=== PATIENT | female | born 1945 | race Caucasian/White ===

== ENCOUNTER 2017-08-27 13:33 | Observation (INO) | payer OTHER ==
[~2017-08-27] VITALS: Ht 165.1 cm; Wt 74.8 kg
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
--- NOTE | 2017-08-27 15:57 | CT SCAN REPORT ---
EXAMINATION: CT HEAD WITHOUT CONTRAST CLINICAL INFORMATION: Fall. Rule out bleed. COMPARISON: None. TECHNIQUE: Contiguous axial imaging was performed from the skull base to vertex without intravenous contrast. DLP: 615 mGy-cm. FINDINGS: There is a small volume of subarachnoid hemorrhage along the right frontal lobe, series 2 image 35. There is no evidence of acute parenchymal hemorrhage or territorial infarction. No abnormal mass effect or midline shift is seen. Yun to white matter differentiation is well preserved. No hydrocephalus. Proportional prominence of the ventricles and sulcal spaces is consistent with mild volume loss. Patchy periventricular and deep white matter hypoattenuation is consistent with mild small vessel ischemic changes. Right basal ganglia chronic lacunar infarcts. Laceration overlying the right supraorbital region. No associated calvarial fracture. The mastoid air cells and visualized portions of the paranasal sinuses are well aerated. IMPRESSION: Small volume of right frontal subarachnoid hemorrhage. No parenchymal hemorrhage or other acute abnormality. This critical result was discussed with Pasha Doherty MD by telephone at 08/27/2017 3:51 PM and it was ascertained that the content and urgency of the report was understood at the time of direct communication.
[2017-08-27 17:35] LABS: ABSOLUTE BASOPHIL COUNT 0 /CUMM (0.0-0.2); ABSOLUTE EOSINOPHIL COUNT 0.1 /CUMM (0.0-0.7); ABSOLUTE GRANULOCYTE CT 5.3 /CUMM (1.4-6.5); ABSOLUTE MONOCYTE COUNT 0.6 /CUMM (0.10-0.60); BASOPHIL % 0.5 % (0.0-2.0); EOSINOPHIL % 1.2 % (0-5); HEMATOCRIT 40.6 % (37-47); MEAN CORPUSCULAR HGB 30.8 PG (27.0-31.0); MEAN CORPUSCULAR HGB CONC 33.5 G/DL (33.0-37.0); MEAN PLATELET VOLUME 7.4 FL (7.4-10.4); PLATELET COUNT 303 /CUMM (130-400); RBC DISTRIBUTION WIDTH 13.7 % (11.5-14.5); RED BLOOD CELL CT 4.42 /CUMM (4.20-5.40); WHITE BLOOD CELL COUNT 8.1 /CUMM (4.8-10.8)
[2017-08-27 17:44] LABS: PT 10.8 SEC (9.4-12.5); PTT 28 SEC (25-37)
[2017-08-27] MEDS ORDERED: VITAMIN D1000 UNIT PO (19:10)
[2017-08-27] MEDS ORDERED: ESCITALOPRAM OXA5 MG PO (19:12)
[2017-08-27] MEDS ORDERED: DILTIAZEM HCL90 MG PO (19:12)
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
--- NOTE | 2017-08-27 22:59 | Admission Certification ---
Admission Certification Certification Statement - As attending physician, I certify that at the time of - admission, based on clinical presentation, severity of - symptoms, need for further diagnostic testing and - therapeutic interventions, and risk of adverse outcomes - without in-hospital treatment, in my clinical assessment, - this patient requires an acute hospital stay for a minimum - of two nights or longer. I have also considered psychsocial - factors such as support system, advanced age, financial - issues, cognitive issues, and failed out-patient treatments, - past re-admission history, safety of patient, and lack of - compliance as applicable. Specific rationale supporting this admission is: Mechanical fall, forehead laceration with small subarachnoid hemorrhage
[2017-08-27 23:10] VITALS: BP 130/64
[2017-08-28 07:20] VITALS: BP 120/74
--- NOTE | 2017-08-28 07:30 | PN- Housestaff ---
Stephanie MURPHY,Deonte 08/28/17 0729: Subjective Follow-up For: SAH Subjective: Patient was seen and examined at bedside. She was resting comfortably. She had no acute events overnight. She is very eager for discharge. She is complaining of a mild headache but believes this is due to being NPO since last night. She denies any weakness, tingling, numbness of visual changes. Review of Systems Constitutional: Denies: chills, fever. EENTM: Denies: blurred vision, double vision, visual changes. Cardiovascular: Denies: chest pain, palpitations. Respiratory: Denies: cough, short of breath. Gastrointestinal: Denies: abdominal pain, constipation, diarrhea, melena, nausea, bloody stool, vomiting. Genitourinary: Reports: no symptoms. Objective Last 24 Hrs of Vital Signs/I&O Vital Signs Date Time Temp Pulse Resp B/P B/P Pulse O2 O2 Flow FiO2 Mean Ox Delivery Rate 08/28 0720 97.8 72 20 120/74 93 Room Air 08/27 2310 98.0 61 20 130/64 93 Room Air 08/27 2025 97.3 66 18 132/57 95 08/27 1748 61 16 151/60 96 Room Air 08/27 1414 98.2 67 18 165/95 98 Room Air Intake & Output 08/28 0800 08/28 0000 08/27 1600 Intake Total 220 Output Total Balance 220 Intake, Oral 220 Patient 165 lb 130 lb Weight Weight Reported by Patient Reported by Patient Measurement Method Physical Exam General Appearance: Alert, Oriented X3, Cooperative, No Acute Distress Skin: abrasions on the knees and dorsal hands bilaterally. HEENT: large laceration on the R sided forehead s/p suture placement Cardiovascular: Regular Rate, Normal S1, Normal S2, No Murmurs Lungs: Clear to Auscultation, Normal Air Movement Abdomen: Normal Bowel Sounds, Soft, No Tenderness Neurological: Normal Gait, Normal Speech, Strength at 5/5 X4 Ext, Normal Tone, Sensation Intact, Cranial Nerves 3-12 NL Extremities: No Clubbing, No Cyanosis, No Edema Current Medications: Current Medications Sig/Delbert Start time Last Medication Dose Route Stop Time Status Admin Acetaminophen 650 MG Q8P PRN 08/27 2315 AC PO Acetaminophen 1,000 MG BID PRN 08/27 2315 AC IV Cholecalciferol 1,000 IU DAILY 08/28 1000 AC PO Lidocaine 0 .STK-MED ONE 08/27 1540 DC .ROUTE Tetanus/Diphtheria 0 .STK-MED ONE 08/27 1540 DC Toxoids Adsorbed IM Tetanus/Diphtheria 0 .STK-MED ONE 08/27 1538 DC Toxoids Adsorbed IM Tetanus/Diphtheria 0.5 ML ONCE ONE 08/27 1530 DC 08/27 Toxoids Adsorbed IM 08/27 1531 1540 Last 24 Hrs of Lab/Dickson Results Last 24 Hrs of Labs/Mics: Laboratory Tests 08/28/17 0800: Anion Gap 8, Estimated GFR > 60, BUN/Creatinine Ratio 20.0, Troponin I < 0.01, CBC w Diff NO MAN DIFF REQ, RBC 4.41, MCV 90.9, MCH 31.0, RDW 13.8, MPV 7.7, Gran % 59.8, Lymphocytes % 29.1, Monocytes % 9.0, Eosinophils % 1.5, Basophils % 0.6, Absolute Granulocytes 4.6, Absolute Lymphocytes 2.2, Absolute Monocytes 0.7 H, Absolute Eosinophils 0.1, Absolute Basophils 0, PUBS MCHC 34.1 Orders Radiology Findings: head CT The small area of subarachnoid hemorrhage overlying the right middle frontal gyrus is unchanged compared to 08/27/2017. No new intracranial findings compared to the prior exam. Assessment/Plan Assessment: Patient is a 72 year old female witha PMH significant for ostoepenia and SVT who presented to the ED status post mechanical fall with head strike but no LOC. #SAH repeat head CT showed no change in the size of her SAH. She was seen and evaluated by NSG who determined that she is not a surgical candidate and stable for discharge without change in her CT. -Patient is stable for discharge - she will follow up with NSG as an outpatient. - She was given wound care instructions and detailed instructions on symptoms to be aware of that could represent worsening SAH and told to call 911 immediately. #DVT prophylaxis ALPS #code status full code Problem List: 1. Subarachnoid hemorrhage 2. Laceration Pain Ratin Pain Location: head Pain Goal: Pain 4 or less Pain Plan: pain pathway Tomorrow's Labs & Rationales: none Shoaib Franklin MD 08/28/17 1155: Attending MD Review Statement Attending Statement Attending MD Statement: examined this patient, discuss w/resident/PA/BEVEL GEAR GENERATOR OPERATOR, agreed w/resident/PA/BEVEL GEAR GENERATOR OPERATOR, discussed with family, reviewed EMR data (avail), discussed with nursing, discussed with case mgmt, amended to note Attending Assessment/Plan: Patient seen and examined. Lying comfortably in bed not in any acute distress. Alert present at bedside. She had complained of some headache earlier this morning but states that this is resolved. Denies any nausea vomiting. Denies any dizziness. On examination pupils equal and reactive light accommodation. She has no focal neurologic deficit. She has a sutured laceration over the right side of her forehead. Repeat head CT today shows no change in the small subarachnoid hemorrhage. Patient is extremely yet to be discharged today and no longer wants to remain in the hospital. She's been given clear instructions to return immediately to the hospital should she develop headache, nausea, vomiting, confusion, dizziness or weakness. Instructions were provided to the at the bedside as well. They both verbalized understanding. She's been instructed to follow-up with her primary care provider next week. Removal of her sutures will be addressed by her primary care provider as an outpatient. She is medically stable to be discharged home today.
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
[2017-08-28 08:39] LABS: ABSOLUTE BASOPHIL COUNT 0 /CUMM (0.0-0.2); ABSOLUTE EOSINOPHIL COUNT 0.1 /CUMM (0.0-0.7); ABSOLUTE GRANULOCYTE CT 4.6 /CUMM (1.4-6.5); ABSOLUTE LYMPH COUNT 2.2 /CUMM (1.2-3.4); ABSOLUTE MONOCYTE COUNT 0.7 /CUMM (0.10-0.60); BASOPHIL % 0.6 % (0.0-2.0); EOSINOPHIL % 1.5 % (0-5); GRANULOCYTE % 59.8 % (42.2-75.2); MEAN CORPUSCULAR HGB CONC 34.1 G/DL (33.0-37.0); MEAN CORPUSCULAR VOLUME 90.9 FL (81.0-99.0); MEAN PLATELET VOLUME 7.7 FL (7.4-10.4); PLATELET COUNT 291 /CUMM (130-400); RBC DISTRIBUTION WIDTH 13.8 % (11.5-14.5); RED BLOOD CELL CT 4.41 /CUMM (4.20-5.40); WHITE BLOOD CELL COUNT 7.7 /CUMM (4.8-10.8)
--- NOTE | 2017-08-28 11:07 | Patient Discharge Instructions ---
Discharge Instructions General Discharge Information You were seen/treated for: Subarachnoid hemorrhage Special Instructions: Please follow up with Dr. Garcia within one week of discharge for further care of your stiches. Please follow up withe neurosurgery within one week of discharge, we have provided you with a referral. If you should have worsening headache, vomiting, weakness, numbness, visual changes, or another fall call 911 immediately and return to the ER. Activity Activity Self Limited: Yes (as tolerated) Acute Coronary Syndrome Inclusion Criteria At DC or during hospital stay patient has or had the following: ACS DIAGNOSIS No Discharge Core Measures Meds if any: Prescribed or Continued at Discharge Meds if any: NOT Prescribed or Continued at Discharge Congestive Heart Failure Inclusion Criteria At DC or during hospital stay patient has or had the following: CHF DIAGNOSIS No Discharge Core Measures Meds if any: Prescribed or Continued at Discharge Meds if any: NOT Prescribed or Continued at Discharge Cerebrovascular accident Inclusion Criteria At DC or during hospital stay patient has or had the following: CVA/TIA Diagnosis No Discharge Core Measures Meds if any: Prescribed or Continued at Discharge Meds if any: NOT Prescribed or Continued at Discharge Venous thromboembolism Inclusion Criteria VTE Diagnosis No VTE Type NONE VTE Confirmed by (Test) NONE Discharge Core Measures - Per Current guidelines, there needs to be overlap - treatment for the first 5 days of Warfarin therapy. - If discharged on Warfarin prior to 5 days of - overlap therapy, the patient will need to be - assessed for post discharge needs including - *Post discharge parental anticoagulation - *Warfarin and/or parental anticoagulation education - *Follow up date to check INR post discharge At least 5 days overlap therapy as Inpatient No Meds if any: Prescribed or Continued at Discharge Note: Overlap Therapy is Warfarin and Anticoagulant Meds if any: NOT Prescribed or Continued at Discharge
--- NOTE | 2017-08-28 11:51 | CT SCAN REPORT ---
EXAMINATION: CT HEAD WITHOUT CONTRAST CLINICAL INFORMATION: Status post fall. Evaluate for bleed. COMPARISON: 08/27/2017 TECHNIQUE: Contiguous axial imaging was performed from the skull base to vertex without intravenous administration of contrast. DLP: 617 mGy-cm FINDINGS: Again noted is a small focus of hyperdense hemorrhage within subarachnoid space overlying the right middle frontal gyrus (images 35, series 2); this is unchanged in appearance compared to 08/27/2017. No new foci of extra-axial or intra-axial hemorrhage. The arellano-white matter differentiation is well preserved. Mild hypoattenuation in supratentorial white matter is suggestive of chronic microvascular ischemic change. 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 Mild cerebral atrophy with symmetric prominence of ventricles and sulci. No acute findings within the posterior fossa. There is atherosclerotic calcification of cavernous carotid arteries. The calvarium is intact and the visualized paranasal sinuses, mastoid air cells and middle ear cavities are well aerated. The visualized orbits, globes and temporomandibular joints are intact. IMPRESSION: The small area of subarachnoid hemorrhage overlying the right middle frontal gyrus is unchanged compared to 08/27/2017. No new intracranial findings compared to the prior exam.
--- NOTE | 2017-08-30 18:01 | Discharge Summary ---
Visit Information Visit Dates Admission Date: 08/27/17 Discharge Date: 08/28/17 Hospital Course Course Attending Physician: Shoaib Franklin MD Primary Care Physician: Radha MURPHY,Elian Doty Other Care Providers: Christopher MURPHY, Jason Ballesteros Hospital Course: Patient is a 72-year-old female with a PMH significant for paroxismal SVT, depression, and osteopenia who presented to the [facility] ED status post mechanical fall with headstrike but no loss of consciousness. VS on admission: temperature 98.2, pulse rate 67, respiration 18, blood pressure 165/95, pulse ox 98% on room air Labs on admisison: WBC 8.1, hemoglobin 13.6, platelets 303. Renal function-BUN 16, creatinine 0.7. Calcium 9.6. INR 1.08. Troponin 0.01 EKG showed sinus rhythm with nonspecific T wave changes #Subarachnoid hemorrhage CT scan showed small R frontal SAH. Neurosurgery was consulted from the ED and they recommended serial neurochecks and repeat CT the following day. She was evaluated by Neurosurgery who recommended discharge given no evolution of the SAH overnight and no focal neurological deficits. Patient was discharged with explicit instructions to call 911 if she developed any neuological symptoms and to follow up with neurosurgery as an outpatient. #R forehead laceration Approximately 3 inch laceration on the R side of forehead, requiring 9 sutures in the ED. Patient was given wound care instructions and told to folow up with her PCP in 1 week for a wound check and to schedule suture removal. DVT prophylaxis was addressed with ALPS and no pharmacologic prophylaxis given the bleeding risk of SAH. Allergies: Coded Allergies: Penicillins (RASH ALL OVER BODY PER PT 08/27/17) Significant Procedures: Head CT Small volume of right frontal subarachnoid hemorrhage. No parenchymal hemorrhage or other acute abnormality. Repeat head CT The small area of subarachnoid hemorrhage overlying the right middle frontal gyrus is unchanged compared to 08/27/2017. No new intracranial findings compared to the prior exam. Disposition Summary Disposition Principal Diagnosis: Subarachnoid hemorrhage Additional Diagnosis: Laceration of the R forehead Discharge Disposition: home or self care Discharge Instructions General Discharge Information Code Status: Full Code Patient's Diet: Regular Patient's Activity: As tolerated Follow-Up Instructions/Appts: Follow up with Dr. Garcia within one week of discharge for further care of your stitches. Follow up with neurosurgery within one week of discharge. Medications at Discharge Discharge Medications: Continue taking these medications: Cholecalciferol (Vitamin D3) (Vitamin D) 1,000 UNIT TABLET 1,000 International Unit ORAL DAILY Comments: Last Taken: 08/28 Time: 12:30 pm Diltiazem HCl (Diltiazem HCl) 90 MG TABLET 1 Tablet ORAL as needed for TACHYCARDIA Qty = 90 Escitalopram Oxalate (Escitalopram Oxalate) 5 MG TABLET 1 Tablet ORAL As Directed Qty = 90 Copies To: Radha MURPHY,Elian Doty; Christopher MURPHY,Jason Ballesteros Attending MD Review Statement Documenting Attending: Shoaib Franklin MD
== END 2017-08-28 12:45 ==
LOC: ERH 13:33 → 2NA 19:02 → ERHI 19:02 → ENRESERV 20:09 → ENTRNSPT 20:57 → EDTRNSPTSTS 21:02 → EDTRNSPT 21:02 → 2NA 21:12 → CMPTRNSPT 21:17 → 2NA 08-28 07:51 → ENTRNSPT 08-28 12:40 → EDTRNSPT 08-28 12:44 → EDTRNSPTSTS 08-28 12:44 → 2NA 08-28 12:45 → CMPTRNSPT 08-28 13:00
PROVIDERS: Internal Medicine Endocrinology, Diabetes & Metabolism; Physician Assistant Medical
DX: S06.6X0A Traumatic subarachnoid hemorrhage without loss of consciousness, initial encounter (principal); I47.1 Supraventricular tachycardia; F32.9 Major depressive disorder, single episode, unspecified; S01.81XA Laceration without foreign body of other part of head, initial encounter; M85.80 Other specified disorders of bone density and structure, unspecified site; Z87.891 Personal history of nicotine dependence; W18.30XA Fall on same level, unspecified, initial encounter; Y93.89 Activity, other specified; Y92.008 Other place in unspecified non-institutional (private) residence as the place of occurrence of the external cause
CPT/HCPCS: 2NASP; 36415; 82436; 90471; 90714; 93005; 93010; 97116-GO; 97161-GP